=== PATIENT | female | born 1955 | race Caucasian/White ===

== ENCOUNTER 2023-10-12 13:49 | Emergency (ER) | payer MEDICARE, BC ==
[~2023-10-12] VITALS: Ht 170.2 cm; Wt 65.0 kg
[2023-10-12 13:59] VITALS: BP 131/55; PULSE 63; RESP 18; TEMP 97.5; O2SAT 98
--- NOTE | 2023-10-12 14:30 | NUR ---
NOT IN LOBBY
--- NOTE | 2023-10-12 15:17 | NUR ---
REC'D CALL FROM PT, STATING SHE HAD TO LEAVE FOR AN EMERGENCY. CANT BE SEEN TODAY. CHARGE MADE AWARE
--- NOTE | 2023-10-13 09:45 | NUR ---
SPOKE WITH PT, SHE HAD TO LEAVE FOR A FAMILY EMERGENCY. SHE HAS F/U TODAY WITH EYE DOCTOR.
== END 2023-10-12 15:27 | disposition left against medical advice (07) ==
LOC: ER 13:49
DX: H57.11 Ocular pain, right eye (principal); Z88.1 Allergy status to other antibiotic agents; Z88.0 Allergy status to penicillin; Z53.21 Procedure and treatment not carried out due to patient leaving prior to being seen by health care provider